=== PATIENT | male | born 2000 | race Caucasian/White ===

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

== ENCOUNTER 2021-08-17 15:32 | Outpatient (CLI) | payer MEDICAID, SELFPAY ==
[2021-08-19 10:19] LABS: Syphilis Serology (RPR) Negative (Negative)
[2021-08-19 10:30] LABS: Hepatitis C Ab w Rflx HCV PCR Negative (Negative)
[2021-08-19 10:44] LABS: Hep B Core Antibody Negative (Negative)
[2021-08-19 12:49] LABS: HIV-1/2 Ag & Ab Screen Negative (Negative)
[2021-08-19 15:29] LABS: GC Result Negative (Negative)
[2021-08-19 16:44] LABS: Chlamydia Result Positive (Negative)
== END 2021-08-17 15:33 | disposition home or self-care (01) ==
LOC: LBO 15:34
PROVIDERS: Visit Provider Student in an Organized Health Care Education/Training Program
DX: Z11.3 Encounter for screening for infections with a predominantly sexual mode of transmission (principal); Z11.59 Encounter for screening for other viral diseases; Z11.4 Encounter for screening for human immunodeficiency virus [HIV]
CPT/HCPCS: 36415; 86704; 86803; 87389; 87491; 87591; 86592

== ENCOUNTER 2021-10-28 16:18 | Outpatient (REF) | payer MEDICAID, SELFPAY ==
[2021-10-31 15:28] LABS: Chlamydia Result Negative (Negative); GC Result Negative (Negative)
== END 2021-10-28 16:19 | disposition home or self-care (01) ==
LOC: LBN 16:18
PROVIDERS: Visit Provider Pediatrics
DX: Z11.3 Encounter for screening for infections with a predominantly sexual mode of transmission (principal)
CPT/HCPCS: 87491; 87591